=== PATIENT | male | born 1995 | race Caucasian/White ===

== ENCOUNTER 2016-08-19 21:47 | Emergency (ER) | payer BC, MEDICAID ==
--- NOTE | 2016-08-19 23:18 | EDDOCDS ---
Physician Documentation [facility] Name: Yordy Marti Age: 20 yrs Sex: Male : 1995 Arrival Date: 08/19/2016 Time: 21:47 Bed U2 Private MD: NO PRIMARY PHYSICIAN, . Disposition: 08/19/16 23:04 Discharged to Home/Self Care. Impression: Encounter for other aftercare. - Condition is Stable. - Medication Reconciliation, Local Pharmacy Hours form. - Follow up: Referral list, As provided by PFS; When: Call to arrange an appointment; Reason: To establish care. - Problem is an ongoing problem. - Symptoms have improved. Historical: - Allergies: no known allergies; - Home Meds: 1. none - PMHx: none; - PSHx: none; - Social history: Smoking status: Patient uses tobacco products, current every day smoker. Patient uses street drugs, No barriers to communication noted, The patient speaks fluent Turkmen. - Family history: Not pertinent. - : The pt / caregiver states he / she is not on anticoagulants. Home medication list is obtained from the patient. - Exposure Risk Screening:: None identified. Vital Signs: 08/19 21:49 BP 136 / 82; Pulse 112; Resp 18 S; Temp 98.0; Pulse Ox 99% on R/A; Weight 92.99 kg / dd6 205.01 lbs (R); Height 5 ft. 11 in. (180.34 cm) (R); 21:49 Body Mass Index 28.59 (92.99 kg, 180.34 cm) dd6 MDM: 22:49 PSA Outpatient Referrals was scanned into [employer] and attached to record. ml4 23:08 Consult PFS/PSA/Administrative Underwriter ordered. cs11 23:08 Consult PFS/PSA/Administrative Underwriter: Patient's case requires discussion with on-call cs11 Psychiatrist ordered. 23:08 PSA/PFS to call Nursing Junk Removal Specialist, to enter [place] data [place] if patient cs11 involuntarily admitted or transferred for SI or HI ordered. 23:08 Confirm accurate psychiatric medication list and times of last dosage ordered. cs11 23:08 Detain Pt Until Medically/PFS Cleared ordered. cs11 23:09 Consult PFS/PSA/Administrative Underwriter complete. cl 23:09 Consult PFS/PSA/Administrative Underwriter: Patient's case requires discussion with on-call cl Psychiatrist complete. 23:09 PSA/PFS to call Nursing Junk Removal Specialist, to enter [place] data [place] if patient cl involuntarily admitted or transferred for SI or HI complete. 23:13 Financial registration complete. zo 23:15 [facility] Payment Agreement was scanned into [employer] and attached to record. zo Signatures: Dispatcher [employer] EDMS Stevie, Ashu, PSA PSA cl Chucky, Ruma, PSA PSA ml4 Shawna Arndt Craig, DO cs11 Essence Kitchen,AC NAVY AIRSPACE OFFICER Miguelina Marie,RN RN ms18 The chart was reviewed and I authenticate all verbal orders and agree with the evaluation and treatment provided.Corrections: (The following items were deleted from the chart) 23:11 23:09 ACETAMINOPHEN LEVEL+LAB ordered. EDMS EDMS 23:11 23:09 BASIC METABOLIC PROFILE+LAB ordered. EDMS EDMS 23:11 23:09 COMPLETE BLOOD COUNT+LAB ordered. EDMS EDMS : 23:09 DRUG EVAL TOXICOLOGY ED ONLY+LAB ordered. EDMS EDMS 23:11 23:09 ETHYL ALCOHOL (ETHANOL)+LAB ordered. EDMS EDMS 23:11 23:09 HCG, QUALITATIVE+LAB ordered. EDMS EDMS 23:11 23:09 LIVER PROFILE+LAB ordered. EDMS EDMS 23:11 23:09 SALICYLATE LEVEL+LAB ordered. EDMS EDMS 23:11 23:09 THYROID STIMULATING HORMONE+LAB ordered. EDMS EDMS Attachments: 23:15 [facility] Payment Agreement zo MTDD
--- NOTE | 2016-08-19 23:18 | EDDOCDS ---
Nurse's Notes [facility] Name: Yordy Marti Age: 20 yrs Sex: Male : 1995 Arrival Date: 08/19/2016 Time: 21:47 Bed U2 Private MD: NO PRIMARY PHYSICIAN, . Diagnosis: Encounter for other aftercare Presentation: 08/19 21:54 Red Flag criteria, patient assessed and is suitable to finish the RCE Process. Patient jmb here for substance abuse rehabilitation help. Patient alert and oriented, with family. Patient to follow through process. 21:54 Presenting complaint: Patient states: that he needs to be evaluated for drug abuse. Pt ms18 doesn't not want to disclose what drugs he is abusing at this time. Pt wants to speak with a counselor and be evaluated to get help. Mental Health Triage Level: Level 1- Pt displays no suicidal or homicidal ideations and does not appear to be a danger to self or others. Adult Sepsis Screening: The patient does not have new or worsening altered mentation. Patient's respiratory rate is less than 22. Systolic blood pressure is greater than 100. Patient has a qSOFA score of 0- Negative Sepsis Screen. Suicide/Homicide risk assessment- the patient denies having any suicidal and/or homicidal ideations and does not present with any other emotional, behavioral or mental health complaints. Status: Patient is not a oil well service operator or dependent. Transition of care: patient was not received from another setting of care. 21:54 Acuity: VIKTORIA Level 4 ms18 21:54 Method Of Arrival: Walkin/Carried/Asstd ms18 Triage Assessment: 21:58 General: Appears in no apparent distress, comfortable, Behavior is anxious, ms18 cooperative. Pain: Denies pain. Pt Declines HIV testing. Neurological: Level of Consciousness is awake, alert, obeys commands, Oriented to person, place, time. Respiratory: No deficits noted. Derm: Skin is pink, warm & dry. Historical: - Allergies: no known allergies; - Home Meds: 1. none - PMHx: none; - PSHx: none; - Social history: Smoking status: Patient uses tobacco products, current every day smoker. Patient uses street drugs, No barriers to communication noted, The patient speaks fluent Honduran. - Family history: Not pertinent. - : The pt / caregiver states he / she is not on anticoagulants. Home medication list is obtained from the patient. - Exposure Risk Screening:: None identified. Screenin:15 Screening information is obtained from the patient. Fall risk: No risks identified. slm Assistance ADL's: requires no assistance with activities of daily living. Abuse/DV Screen: The patient / caregiver reports he/she is: not in a situation that causes fear, pain or injury. Nutritional screening: No deficits noted. Advance Directives: Currently, there is no health care proxy. There is no active DNR order. There is no living will. There is no Power of Medical Office Assistant Instructor. Advance directive information has not previously been placed in an [facility] medical record. Further advance directive information is declined. home support is adequate. Assessment: 22:19 General: Appears in no apparent distress, Behavior is appropriate for age, cooperative. slm General: pt sitting on stretcher security observing . Respiratory: Airway is patent Respiratory effort is even, unlabored, Respiratory pattern is regular. 23:14 General: Appears in no apparent distress, Behavior is appropriate for age, cooperative. slm Respiratory: No deficits noted. Derm: Skin is healthy with good turgor. Social Work Consult: 22:45 Social Work Note: Met pt at bedside regarding drug abuse. Admits using ml4 meth/Amphetamines and is requesting rehab. Reports a friend recommended [facility], however was not aware he was in the ED. Pt denies SI and HI, able to CFS. Referrals for outpt services was given at bedside and directed to follow up with [facility] walk-in hrs for further tx. Vital Signs: 21:49 BP 136 / 82; Pulse 112; Resp 18 S; Temp 98.0; Pulse Ox 99% on R/A; Weight 92.99 kg (R); dd6 Height 5 ft. 11 in. (180.34 cm) (R); 21:49 Body Mass Index 28.59 (92.99 kg, 180.34 cm) dd6 Vitals: 21:49 Log In Time: August 19, 2016 at 21:47. RN notified that patient meets Red Flag dd6 criteria. ED Course: 21:49 Patient visited by Tee Oropeza PCA. dd6 21:49 NO PRIMARY PHYSICIAN, . is Private Physician. dd6 21:49 Patient moved to Waiting dd6 21:58 Triage Initiated ms18 22:01 Patient moved to [facility] ms18 22:06 Joey Mobley DO is Attending Physician. cs11 22:06 Patient visited by Joey Mobley DO. cs11 22:20 Patient visited by Essence Kitchen LPN. slm 22:45 Patient visited by Essence Kitchen LPN. slm 22:49 PSA Outpatient Referrals was scanned into [email or web address] and attached to record. ml4 23:00 Referral list, As provided by PFS is Referral Physician. cs11 23:15 [facility] Payment Agreement was scanned into [employer] and attached to record. zo 23:16 Patient visited by Essence Kitchen LPN. slm 23:16 The patient / caregiver is instructed regarding the plan of care and ED course. Patient slm has correct armband on for positive identification. Bed in low position. Call light in reach. Side rails up X 1. Security observing. 23:16 No IV's were initiated during this patient's visit. No procedures done that require slm assistance. Order Results: There are currently no results for this order. Outcome: 23:04 Discharge ordered by Provider. cs11 23:15 Discharge Assessment: Patient awake, alert and oriented x 3. No cognitive and/or slm functional deficits noted. Patient verbalized understanding of disposition instructions. patient administered narcotics - no. The following High Risk Discharge criteria are identified: Yes, pt given referrals seen by psa and md . Discharged to home ambulatory, with family. Condition: stable. Discharge instructions given to patient, Instructed on discharge instructions, follow up and referral plans. Demonstrated understanding of instructions, Pt was receptive of discharge instructions/ teaching. No special radiology studies were completed. Property :Personal belongings accompany Pt. 23:16 Patient left the ED. slm Signatures: Ruma Locke, PSA PSA ml4 [place], Zoeann zo Tee Oropeza, FIELD TRAFFIC INVESTIGATOR FIELD TRAFFIC INVESTIGATOR dd6 Joey Mobley DO DO cs11 Tello Freedman,RN RN Essence Hall LPN LPN slm Smith, Mallory, RN RN ms18 MTDD
--- NOTE | 2016-08-22 00:18 | EDDOCDS ---
Nurse's Notes [facility] Name: Yordy Marti Age: 20 yrs Sex: Male : 1995 Arrival Date: 08/19/2016 Time: 21:47 Bed U2 Private MD: NO PRIMARY PHYSICIAN, . Diagnosis: Encounter for other aftercare Presentation: 08/19 21:54 Red Flag criteria, patient assessed and is suitable to finish the RCE Process. Patient jmb here for substance abuse rehabilitation help. Patient alert and oriented, with family. Patient to follow through process. 21:54 Presenting complaint: Patient states: that he needs to be evaluated for drug abuse. Pt ms18 doesn't not want to disclose what drugs he is abusing at this time. Pt wants to speak with a counselor and be evaluated to get help. Mental Health Triage Level: Level 1- Pt displays no suicidal or homicidal ideations and does not appear to be a danger to self or others. Adult Sepsis Screening: The patient does not have new or worsening altered mentation. Patient's respiratory rate is less than 22. Systolic blood pressure is greater than 100. Patient has a qSOFA score of 0- Negative Sepsis Screen. Suicide/Homicide risk assessment- the patient denies having any suicidal and/or homicidal ideations and does not present with any other emotional, behavioral or mental health complaints. Status: Patient is not a center customer service associate or dependent. Transition of care: patient was not received from another setting of care. 21:54 Acuity: VIKTORIA Level 4 ms18 21:54 Method Of Arrival: Walkin/Carried/Asstd ms18 Triage Assessment: 21:58 General: Appears in no apparent distress, comfortable, Behavior is anxious, ms18 cooperative. Pain: Denies pain. Pt Declines HIV testing. Neurological: Level of Consciousness is awake, alert, obeys commands, Oriented to person, place, time. Respiratory: No deficits noted. Derm: Skin is pink, warm & dry. Historical: - Allergies: no known allergies; - Home Meds: 1. none - PMHx: none; - PSHx: none; - Social history: Smoking status: Patient uses tobacco products, current every day smoker. Patient uses street drugs, No barriers to communication noted, The patient speaks fluent Honduran. - Family history: Not pertinent. - : The pt / caregiver states he / she is not on anticoagulants. Home medication list is obtained from the patient. - Exposure Risk Screening:: None identified. Screenin:15 Screening information is obtained from the patient. Fall risk: No risks identified. slm Assistance ADL's: requires no assistance with activities of daily living. Abuse/DV Screen: The patient / caregiver reports he/she is: not in a situation that causes fear, pain or injury. Nutritional screening: No deficits noted. Advance Directives: Currently, there is no health care proxy. There is no active DNR order. There is no living will. There is no Power of Emergency Management Director. Advance directive information has not previously been placed in an [facility] medical record. Further advance directive information is declined. home support is adequate. Assessment: 22:19 General: Appears in no apparent distress, Behavior is appropriate for age, cooperative. slm General: pt sitting on stretcher security observing . Respiratory: Airway is patent Respiratory effort is even, unlabored, Respiratory pattern is regular. 23:14 General: Appears in no apparent distress, Behavior is appropriate for age, cooperative. slm Respiratory: No deficits noted. Derm: Skin is healthy with good turgor. Social Work Consult: 22:45 Social Work Note: Met pt at bedside regarding drug abuse. Admits using ml4 meth/Amphetamines and is requesting rehab. Reports a friend recommended [facility], however was not aware he was in the ED. Pt denies SI and HI, able to CFS. Referrals for outpt services was given at bedside and directed to follow up with [facility] walk-in hrs for further tx. Vital Signs: 21:49 BP 136 / 82; Pulse 112; Resp 18 S; Temp 98.0; Pulse Ox 99% on R/A; Weight 92.99 kg (R); dd6 Height 5 ft. 11 in. (180.34 cm) (R); 21:49 Body Mass Index 28.59 (92.99 kg, 180.34 cm) dd6 Vitals: 21:49 Log In Time: August 19, 2016 at 21:47. RN notified that patient meets Red Flag dd6 criteria. ED Course: 21:49 Patient visited by Tee Oropeza PCA. dd6 21:49 NO PRIMARY PHYSICIAN, . is Private Physician. dd6 21:49 Patient moved to Waiting dd6 21:58 Triage Initiated ms18 22:01 Patient moved to [facility] ms18 22:06 Joey Mobley DO is Attending Physician. cs11 22:06 Patient visited by Joey Mobley DO. cs11 22:20 Patient visited by Essence Kitchen LPN. slm 22:45 Patient visited by Essence Kitchen LPN. slm 22:49 PSA Outpatient Referrals was scanned into [employer] and attached to record. ml4 23:00 Referral list, As provided by PFS is Referral Physician. cs11 23:15 [facility] Payment Agreement was scanned into [employer] and attached to record. zo 23:16 Patient visited by Essence Kitchen LPN. slm 23:16 The patient / caregiver is instructed regarding the plan of care and ED course. Patient slm has correct armband on for positive identification. Bed in low position. Call light in reach. Side rails up X 1. Security observing. 23:16 No IV's were initiated during this patient's visit. No procedures done that require slm assistance. 23:18 Patient name changed from Yordy\S\\S\Lubbock\S\ to Yordy\S\ \S\Figueroa. EDMS 08/20 09:49 T-Sheet-- Draft Copy was scanned into [employer] and attached to record. gb Order Results: There are currently no results for this order. Outcome: 08/19 23:04 Discharge ordered by Provider. cs11 23:15 Discharge Assessment: Patient awake, alert and oriented x 3. No cognitive and/or slm functional deficits noted. Patient verbalized understanding of disposition instructions. patient administered narcotics - no. The following High Risk Discharge criteria are identified: Yes, pt given referrals seen by psa and md . Discharged to home ambulatory, with family. Condition: stable. Discharge instructions given to patient, Instructed on discharge instructions, follow up and referral plans. Demonstrated understanding of instructions, Pt was receptive of discharge instructions/ teaching. No special radiology studies were completed. Property :Personal belongings accompany Pt. 23:16 Patient left the ED. slm Signatures: Dispatcher Med[employer] EDMS Crystal Sahu, Reg Reg gb Ruma Locke, PSA PSA ml4 [place], Zoeann zo DesTee mohr, BIOMED TECH BIOMED TECH dd6 Joey Mobley, DO cs11 Tello Freedman,RN RN jmb Essence Kitchen,CLINICAL RESEARCH TECHNICIAN CLINICAL RESEARCH TECHNICIAN Miguelina Marie,RN RN ms18 Chart Complete MTDD
--- NOTE | 2016-08-22 00:18 | EDDOCDS ---
Physician Documentation [facility] Name: Yordy Marti Age: 20 yrs Sex: Male : 1995 Arrival Date: 08/19/2016 Time: 21:47 Bed U2 Private MD: NO PRIMARY PHYSICIAN, . Disposition: 08/19/16 23:04 Discharged to Home/Self Care. Impression: Encounter for other aftercare. - Condition is Stable. - Medication Reconciliation, Local Pharmacy Hours form. - Follow up: Referral list, As provided by PFS; When: Call to arrange an appointment; Reason: To establish care. - Problem is an ongoing problem. - Symptoms have improved. Historical: - Allergies: no known allergies; - Home Meds: 1. none - PMHx: none; - PSHx: none; - Social history: Smoking status: Patient uses tobacco products, current every day smoker. Patient uses street drugs, No barriers to communication noted, The patient speaks fluent Yakut. - Family history: Not pertinent. - : The pt / caregiver states he / she is not on anticoagulants. Home medication list is obtained from the patient. - Exposure Risk Screening:: None identified. Vital Signs: 08/19 21:49 BP 136 / 82; Pulse 112; Resp 18 S; Temp 98.0; Pulse Ox 99% on R/A; Weight 92.99 kg / dd6 205.01 lbs (R); Height 5 ft. 11 in. (180.34 cm) (R); 21:49 Body Mass Index 28.59 (92.99 kg, 180.34 cm) dd6 MDM: 22:49 PSA Outpatient Referrals was scanned into [employer] and attached to record. ml4 23:08 Consult PFS/PSA/Bill Adjuster ordered. cs11 23:08 Consult PFS/PSA/Bill Adjuster: Patient's case requires discussion with on-call cs11 Psychiatrist ordered. 23:08 PSA/PFS to call Nursing Naval Marine Engineer, to enter [place] data [place] if patient cs11 involuntarily admitted or transferred for SI or HI ordered. 23:08 Confirm accurate psychiatric medication list and times of last dosage ordered. cs11 23:08 Detain Pt Until Medically/PFS Cleared ordered. cs11 23:09 Consult PFS/PSA/Bill Adjuster complete. cl 23:09 Consult PFS/PSA/Bill Adjuster: Patient's case requires discussion with on-call cl Psychiatrist complete. 23:09 PSA/PFS to call Nursing Naval Marine Engineer, to enter [place] data [place] if patient cl involuntarily admitted or transferred for SI or HI complete. 23:13 Financial registration complete. zo 23:15 [facility] Payment Agreement was scanned into [employer] and attached to record. zo 08/20 09:49 T-Sheet-- Draft Copy was scanned into [employer] and attached to record. gb Signatures: Dispatcher MedHost EDMS Ashu Hubbard, PSA PSA cl Crystal Sahu, Reg Reg gb Ruma Locke, PSA PSA ml4 [place], Zoeann zo Joey Mobley, DO cs11 Essence Kitchen LPN LPN Miguelina Marie,RN RN ms18 The chart was reviewed and I authenticate all verbal orders and agree with the evaluation and treatment provided.Corrections: (The following items were deleted from the chart) 08/19 23:11 23:09 ACETAMINOPHEN LEVEL+LAB ordered. EDMS EDMS 23:11 23:09 BASIC METABOLIC PROFILE+LAB ordered. EDMS EDMS 23:11 23:09 COMPLETE BLOOD COUNT+LAB ordered. EDMS EDMS 23:11 23:09 DRUG EVAL TOXICOLOGY ED ONLY+LAB ordered. EDMS EDMS 23:11 23:09 ETHYL ALCOHOL (ETHANOL)+LAB ordered. EDMS EDMS 23:11 23:09 HCG, QUALITATIVE+LAB ordered. EDMS EDMS 23:11 23:09 LIVER PROFILE+LAB ordered. EDMS EDMS 23:11 23:09 SALICYLATE LEVEL+LAB ordered. EDMS EDMS 23:11 23:09 THYROID STIMULATING HORMONE+LAB ordered. EDMS EDMS Attachments: 23:15 [facility] Payment Agreement zo 08/20 09:49 T-Sheet-- Draft Copy gb Chart Complete MTDD
--- NOTE | 2016-08-22 00:18 | EDDOCDS ---
Physician Documentation [facility] Name: Yordy Marti Age: 20 yrs Sex: Male : 1995 Arrival Date: 08/19/2016 Time: 21:47 Bed U2 Private MD: NO PRIMARY PHYSICIAN, . Disposition: 08/19/16 23:04 Discharged to Home/Self Care. Impression: Encounter for other aftercare. - Condition is Stable. - Medication Reconciliation, Local Pharmacy Hours form. - Follow up: Referral list, As provided by PFS; When: Call to arrange an appointment; Reason: To establish care. - Problem is an ongoing problem. - Symptoms have improved. Historical: - Allergies: no known allergies; - Home Meds: 1. none - PMHx: none; - PSHx: none; - Social history: Smoking status: Patient uses tobacco products, current every day smoker. Patient uses street drugs, No barriers to communication noted, The patient speaks fluent Danish. - Family history: Not pertinent. - : The pt / caregiver states he / she is not on anticoagulants. Home medication list is obtained from the patient. - Exposure Risk Screening:: None identified. Vital Signs: 08/19 21:49 BP 136 / 82; Pulse 112; Resp 18 S; Temp 98.0; Pulse Ox 99% on R/A; Weight 92.99 kg / dd6 205.01 lbs (R); Height 5 ft. 11 in. (180.34 cm) (R); 21:49 Body Mass Index 28.59 (92.99 kg, 180.34 cm) dd6 MDM: 22:49 PSA Outpatient Referrals was scanned into [employer] and attached to record. ml4 23:08 Consult PFS/PSA/Flexographic Press Operator ordered. cs11 23:08 Consult PFS/PSA/Flexographic Press Operator: Patient's case requires discussion with on-call cs11 Psychiatrist ordered. 23:08 PSA/PFS to call Nursing Assistant Football Coach, to enter [place] data [place] if patient cs11 involuntarily admitted or transferred for SI or HI ordered. 23:08 Confirm accurate psychiatric medication list and times of last dosage ordered. cs11 23:08 Detain Pt Until Medically/PFS Cleared ordered. cs11 23:09 Consult PFS/PSA/Flexographic Press Operator complete. cl 23:09 Consult PFS/PSA/Flexographic Press Operator: Patient's case requires discussion with on-call cl Psychiatrist complete. 23:09 PSA/PFS to call Nursing Assistant Football Coach, to enter [place] data [place] if patient cl involuntarily admitted or transferred for SI or HI complete. 23:13 Financial registration complete. zo 23:15 [facility] Payment Agreement was scanned into [employer] and attached to record. zo 08/20 09:49 T-Sheet-- Draft Copy was scanned into [employer] and attached to record. gb Signatures: Dispatcher [employer] EDMS Ashu Hubbard, PSA PSA cl Crystal Sahu, Reg Reg gb Ruma Locke, PSA PSA ml4 [place], Zoeann zo Joey Mobley, DO cs11 Essence Kitchen LPN LPN Miguelina Marie,RN RN ms18 The chart was reviewed and I authenticate all verbal orders and agree with the evaluation and treatment provided.Corrections: (The following items were deleted from the chart) 08/19 23:11 23:09 ACETAMINOPHEN LEVEL+LAB ordered. EDMS EDMS 23:11 23:09 BASIC METABOLIC PROFILE+LAB ordered. EDMS EDMS 23:11 23:09 COMPLETE BLOOD COUNT+LAB ordered. EDMS EDMS 23:11 23:09 DRUG EVAL TOXICOLOGY ED ONLY+LAB ordered. EDMS EDMS 23:11 23:09 ETHYL ALCOHOL (ETHANOL)+LAB ordered. EDMS EDMS 23:11 23:09 HCG, QUALITATIVE+LAB ordered. EDMS EDMS 23:11 23:09 LIVER PROFILE+LAB ordered. EDMS EDMS 23:11 23:09 SALICYLATE LEVEL+LAB ordered. EDMS EDMS 23:11 23:09 THYROID STIMULATING HORMONE+LAB ordered. EDMS EDMS Attachments: 23:15 [facility] Payment Agreement zo 08/20 09:49 T-Sheet-- Draft Copy gb Chart Complete MTDD
== END 2016-08-19 23:16 | disposition home or self-care (01) ==
LOC: M ED 21:47
DX: Z51.89 Encounter for other specified aftercare (principal); F17.200 Nicotine dependence, unspecified, uncomplicated

== ENCOUNTER 2021-11-18 20:42 | Emergency (ER) | payer MEDICAID, SELFPAY ==
[~2021-11-18] VITALS: Ht 180.3 cm; Wt 100.0 kg
[2021-11-18] MEDS ORDERED: LORazepam 2 MG TAB PO STA (21:21)
[2021-11-18 21:37] LABS: HEMATOCRIT 45.1 % (42.0-52.0); HEMOGLOBIN 15.1 g/dl (13.5-17.5); MEAN CORPUSCULAR HEMOGLOBIN 29.8 pg (27.0-33.0); MEAN CORPUSCULAR HGB CONC 33.5 g/dl (32.0-36.5); PLATELET COUNT, AUTOMATED 238 10^3/uL (150-450); RED BLOOD COUNT 5.07 10^6/uL (4.30-6.10); WHITE BLOOD COUNT 8.8 10^3/uL (4.0-10.0)
[2021-11-18 21:58] LABS: AMPHETAMINES LEVEL URINE POSITIVE (NEGATIVE); BARBITURATES URINE NEGATIVE (NEGATIVE); BENZODIAZEPINES URINE NEGATIVE (NEGATIVE); CANNABINOIDS URINE POSITIVE (NEGATIVE); COCAINE METABOLITE URINE NEGATIVE (NEGATIVE); METHADONE URINE NEGATIVE (NEGATIVE); OPIATES URINE NEGATIVE (NEGATIVE); PHENCYCLIDINE URINE NEGATIVE (NEGATIVE)
[2021-11-18 22:09] LABS: ACETAMINOPHEN LEVEL < 2.0 UG/ML (10.0-30.0); ALBUMIN 4.2 GM/DL (3.2-5.2); ALT/SGPT 22 U/L (12-78); BILIRUBIN,DIRECT 0.3 MG/DL (0.0-0.2); BILIRUBIN,TOTAL 1.5 MG/DL (0.2-1.0); BLOOD UREA NITROGEN 14 MG/DL (7-18); CALCIUM LEVEL 9.5 MG/DL (8.5-10.1); CARBON DIOXIDE LEVEL 30 MEQ/L (21-32); CHLORIDE LEVEL 110 MEQ/L (98-107); CREATININE FOR GFR 1.35 MG/DL (0.70-1.30); ETHYL ALCOHOL (ETHANOL) < 0.003 % (0.000-0.010); GLOMERULAR FILTRATION RATE > 60.0 (>60); GLUCOSE, FASTING 106 MG/DL (70-100); POTASSIUM SERUM 4.1 MEQ/L (3.5-5.1); SALICYLATE LEVEL < 1.7 MG/DL (5.0-30.0); SODIUM LEVEL 143 MEQ/L (136-145); THYROID STIMULATING HORMONE 0.976 uIU/ML (0.358-3.740); TOTAL PROTEIN 7.5 GM/DL (6.4-8.2)
[2021-11-18 22:53] LABS: RSV AMPLIFICATION NEGATIVE (NEGATIVE)
[2021-11-19] MEDS ORDERED: METAL LOCK LOOP XX ONE (02:55)
[2021-11-19 10:38] VITALS: BP 124/74
== END 2021-11-19 10:45 | disposition short-term general hospital (02) ==
LOC: M ED 20:42
DX: F43.0 Acute stress reaction (principal); F19.10 Other psychoactive substance abuse, uncomplicated; F17.200 Nicotine dependence, unspecified, uncomplicated